=== PATIENT | female | born 1985 | race Caucasian/White ===

== ENCOUNTER 2021-01-21 20:20 | Emergency (ER) | payer MEDICARE ==
[~2021-01-21] VITALS: Ht 157.5 cm; Wt 82.6 kg
[~2021-01-21 20:20] MED LIST: ABILIFY10 MG PO; BUSPIRONE HCL15 MG PO; CARAFATE1 GM/10 ML PO; DEXILANT60 MG PO; LAMICTAL200 MG PO; PRISTIQ ER50 MG PO; WELLBUTRIN100 MG PO
[2021-01-21] MEDS ORDERED: ASPIRIN 81 MG CHEW TAB PO ONE (20:30)
[2021-01-21 20:42] LABS: BASOPHILS % 0.4 % (0.0-1.0); EOSINOPHILS # (AUTO) 0.2 (0.0-0.4); EOSINOPHILS % 3.2 % (0.0-6.0); HEMOGLOBIN 9.4 g/dL (12.0-16.0); LYMPHOCYTES # (AUTO) 2.6 (1.0-3.2); LYMPHOCYTES % 35.4 % (18.0-39.1); MEAN CORPUSCULAR HGB CONC 30.3 g/dL (31-35); MEAN CORPUSCULAR VOLUME 75.8 fL (81-99); MONOCYTES # (AUTO) 0.6 (0.2-0.8); MONOCYTES % 8.9 % (4.4-11.3); NEUTROPHILS # (AUTO) 3.8 (2.1-6.9); PLATELET COUNT 332 x10e3/uL (140-360); RED BLOOD COUNT 4.09 x10e6/uL (3.6-5.1); RED CELL DISTRIBUTION WIDTH 15.7 % (11.7-14.4)
[2021-01-21 21:02] LABS: ALANINE AMINOTRANSFERASE 30 IU/L (0-55); ALBUMIN 3.9 g/dL (3.5-5.0); ALBUMIN/GLOBULIN RATIO 1.3 (0.8-2.0); ALKALINE PHOSPHATASE 59 IU/L (40-150); ANION GAP 13.6 mmol/L (8-16); BLOOD UREA NITROGEN 14 mg/dL (7-26); BUN/CREATININE RATIO 18 (6-25); CALCIUM 8.5 mg/dL (8.4-10.2); CARBON DIOXIDE 21 mmol/L (22-29); CHLORIDE 107 mmol/L (98-107); CREATINE KINASE 182 IU/L (29-168); EST GLOMERULAR FILTRATION RATE > 60 ML/MIN (60-); GLUCOSE 108 mg/dL (74-118); POTASSIUM 3.6 mmol/L (3.5-5.1); SODIUM 138 mmol/L (136-145)
== END 2021-01-21 23:08 | disposition home or self-care (01) ==
LOC: ER 20:27
DX: R07.9 Chest pain, unspecified (principal); I49.3 Ventricular premature depolarization; K21.9 Gastro-esophageal reflux disease without esophagitis; F31.9 Bipolar disorder, unspecified; F60.3 Borderline personality disorder; R94.31 Abnormal electrocardiogram [ECG] [EKG]
CPT/HCPCS: 36415; 70450; 71045; 80053; 82550; 82553; 83690; 83880; 84484; 84702; 85025; 85379; 93005; 99283

== ENCOUNTER 2024-11-15 19:18 | Emergency (ER) | payer BC, MEDICARE ==
[~2024-11-15] VITALS: Ht 154.9 cm; Wt 82.6 kg
[2024-11-15 19:47] VITALS: RESP 16; TEMP 98.4
[2024-11-15] MEDS: ONDANSETRON HCL INJ 2MG/ML 2ML 2 MG/ML VIAL IV STA (20:12)
[2024-11-15] MEDS: SODIUM CHLORIDE 0.9% 1000ML 1,000 ML IV STA (20:12)
[2024-11-15 20:21] LABS: BASOPHILS % 0.3 % (0.0-1.0); EOSINOPHILS # (AUTO) 0.2 (0.0-0.4); EOSINOPHILS % 2.7 % (0.0-6.0); HEMOGLOBIN 12.1 g/dL (12.0-16.0); LYMPHOCYTES # (AUTO) 2.5 (1.0-3.2); LYMPHOCYTES % 36.9 % (18.0-39.1); MEAN CORPUSCULAR HEMOGLOBIN 28.8 pg (28-32); MEAN CORPUSCULAR HGB CONC 33.6 g/dL (31-35); MEAN CORPUSCULAR VOLUME 85.7 fL (81-99); MONOCYTES # (AUTO) 0.6 (0.2-0.8); MONOCYTES % 9.5 % (4.4-11.3); NEUTROPHILS # (AUTO) 3.4 (2.1-6.9); NEUTROPHILS % 50.2 % (38.7-80.0); PLATELET COUNT 306 x10e3/uL (140-360); WHITE BLOOD COUNT 6.74 x10e3/uL (4.8-10.8)
[2024-11-15 20:46] LABS: CORONAVIRUS COVID-19 AG NEGATIVE (NEGATIVE); INFLUENZA A AG NEGATIVE (NEGATIVE); INFLUENZA B AG NEGATIVE (NEGATIVE); STREPTOCOCCUS GRP A ANTIGEN NEGATIVE (NEGATIVE)
[2024-11-15 20:49] LABS: ALBUMIN 3.9 g/dL (3.5-5.0); ALBUMIN/GLOBULIN RATIO 1.3 (0.8-2.0); ANION GAP 13.5 mmol/L (8-16); BILIRUBIN,TOTAL 0.3 mg/dL (0.2-1.2); CALCIUM 8.9 mg/dL (8.4-10.2); CREATININE, SERUM 0.77 mg/dL (0.57-1.11); POTASSIUM 3.5 mmol/L (3.5-5.1); TOTAL PROTEIN 6.8 g/dL (6.5-8.1)
[2024-11-15 20:55] LABS: TROPONIN I 0.001 ng/mL (0-0.300)
[2024-11-15] MEDS: METHYLPREDNISOLONE SOD SUCC 125 MG/2ML VIAL IV STA (21:30)
[2024-11-15] MEDS: METOCLOPRAMIDE HCL 10 MG/2ML VIAL IV STA (21:30)
[2024-11-15] MEDS: KETOROLAC TROMETHAMINE 30 MG/ML VIAL IV STA (21:31)
[2024-11-15] MEDS: DIPHENHYDRAMINE HCL INJ 50 MG/ML VIAL IV STA (21:31)
[2024-11-15 21:47] VITALS: PULSE 65
[2024-11-15 22:12] VITALS: BP 142/51; O2SAT 97
== END 2024-11-15 22:14 | disposition home or self-care (01) ==
LOC: ER 19:28
DX: R42 Dizziness and giddiness (principal); G43.109 Migraine with aura, not intractable, without status migrainosus; R20.2 Paresthesia of skin; K21.9 Gastro-esophageal reflux disease without esophagitis; F31.9 Bipolar disorder, unspecified; R94.31 Abnormal electrocardiogram [ECG] [EKG]
CPT/HCPCS: 36415; 70450; 71045; 80053; 82550; 83518; 83690; 83880; 84484; 85025; 85379; 87070; 87428; 93005; 99284; J1200; J1885; J2405; J2765; J2919; J7030